=== PATIENT | female | born 1935 | race Caucasian/White ===

== ENCOUNTER 2017-08-29 12:23 | Observation (INO) | payer MEDICARE, OTHER ==
[2017-08-29] VITALS (14 sets, daily range): BP systolic 97–180; BP diastolic 46–107
[~2017-08-29] VITALS: Ht 144.8 cm; Wt 81.6 kg
--- NOTE | ~2017-08-29 | H ---
[address] [address] HISTORY AND PHYSICAL Name: GLENN EASON Room: [address] Ayad Montoya#: [id number] Admission: 08/29/17 Attend Phys: Leandro Chan MD Discharge: 08/30/17 Date of : 35 Report #: [id number] THIS REPORT FOR: //name// Please refer to the History and Physical performed in the physician's office. By: 1020Medical Records Staff NAS /KAREEM
[~2017-08-29 12:23] MED LIST: BP MED; CALCIUM 500 +1 EAC5 PO; CALCIUM PO; FISH OIL 1,001000 M2 PO; FISHOIL PO; FLOMAX0.4 MG PO; HYDROCODON-ACE1 EAC7 PO; HYDROCODONE-AP1 EAC6 PO; LIPITOR20 MG PO; NORCO 5-325 TA1 EACH PO; NORVASC 2.5 MG2.5 M1 PO; PERCOCET 5-3251 EACH PO; PLAVIX 75 MG TA75 MG PO; PROMETHAZINE12.5 M1 PO; PROZAC 10 MG CA10 MG PO; TUMS PO; VALIUM2 MG PO; VYTORIN 10-801 EACH PO
[2017-08-29 14:12] LABS: HEMOGLOBIN 11.8 gm/dL (12.0-15.0); MCH 27.9 pg (26.0-34.0); MCHC 32.9 g/dL (28.0-37.0); MCV 84.8 fL (80.0-100.0); MPV 9.9 fl. (7.2-11.1); RBC 4.24 mil/uL (4.20-5.00); RDW-CV 15.6 % (10.5-14.5); WBC 5.8 thou/uL (4.0-11.0)
[2017-08-29 14:22] LABS: ANION GAP 9 mmol/L (7-16); BUN 15 mg/dL (7-18); CALCIUM 8.8 mg/dL (8.5-10.1); CHLORIDE 105 mmol/L (98-107); CO2 29 mmol/L (21-32); CREATININE 0.8 mg/dL (0.6-1.3); GLUCOSE 76 mg/dL (70-99); POTASSIUM 3.8 mmol/L (3.5-5.1); SODIUM 143 mmol/L (136-145)
[2017-08-29 14:23] LABS: PROTIME 10.2 Seconds (9.20-11.50)
[2017-08-29 14:26] LABS: ALBUMIN 3.6 g/dL (3.4-5.0); ALKALINE PHOSPHATASE 112 U/L (46-116); CHOLESTEROL 249 mg/dL (<200); HDL CHOLESTEROL 57 mg/dL (>40); LDL CHOLESTEROL 167 mg/dL (<100); SGOT 31 U/L (15-37); SGPT 26 U/L (30-65); TC:HDL 4.4 Ratio (Not establshd); TOTAL BILIRUBIN 0.9 mg/dL (<0.1-1.0); TOTAL PROTEIN 7.2 g/dL (6.4-8.2); TRIGLYCERIDE 126 mg/dL (<150); VLDL 25 mg/dL (<40)
[2017-08-29 14:27] LABS: SERUM ASSESSMENT Clear
--- NOTE | 2017-08-29 18:38 | NUR ---
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 FROM [facility] RN- PT POST CATH WITH TROUBLE WITH MYNX CLOSURE TO RIGHT GROIN WITH MANUAL PRESSURE HELD- PT ARRIVED TO UNIT ROOM 201 AT 1820- ASSIST X2 VIA SLIDE TO BED-ESTIMATOR AND DRAFTER PLACED INDICATED, TRACING SR WITH BBB- PT A&O X4- CONTINENT OF BOWEL, CONTRERAS IN PLACE D/D CLEAR YELLOE URINE- VS INTAIATED PER PROTOCOL, REPORTED TO BE STARTED 30 MIN VS AT TIME OF ADMISSION- VS 98.2 18 138/57 61 92% ON RA- RIGHT GROIN SITE C/D/I, BRUSING NOTED DRESSING C/D/I- RADIAL CLOSURE NOTED TO RIGHT WRIST, 9 CC TOTAL REPORTED WITH 2 CC REMOVED AT THIS TIME- CALL LIGHT AND PERSONAL BELONGINGS WITH IN REACH- HOURLY ROUNDS IN PLACE R/T SAFETY/NEEDS- ALL NEEDS MET AT THIS TIME
--- NOTE | 2017-08-29 19:51 | TEE ---
[place] [address] TRANSESOPHAGEAL ECHOCARDIOGRAM Name: ANIVALALICIAGLENN [address]: [address]#: [id number] Admission: 08/29/17 Attend Phys: Leandro Chan, Discharge: Date of : 35 Date of Service: 08/29/171950 Report #: [id number] THIS REPORT FOR: //name// APPROVED REPORT Study performed: 08/29/2017 15:39:09 EXAM: Transesophageal Echocardiogram Patient Location: Out-Patient Status: routine BSA: 1.72 HR: 65 bpm BP: 130/37 mmHg Rhythm: NSR Other Information Study Quality: Good Indications Aortic Valve Disease Echo Enhancing Agent Indication: Rule out Shunt Agent(s) / Amount(s) Used: Agitated Saline 10 cc Procedure After obtaining informed consent, patient underwent transesophageal echo in the [facility]. Type of Sedation : Conscious Sedation Sedation was administered by Estrella Tracy. Sedation start time: 1550 Case end Time: 1605 Sedation was achieved intravenously with: Versed (3) Fentanyl (75) Transesophageal probe was inserted and advanced into esophagus without difficulty by Leandro Chan MD, FACC. Echo enhancement indication: R/O Septal defect. Echo enhancement agent administered: Agitated Saline The AYE was performed without complications. Throughout the procedure, the blood pressure, pulse oximetry, cardiac rhythm, and rate were monitored. The patient tolerated the procedure without adverse effects. Recovery from conscious sedation was uneventful and vital signs were stable. Left Ventricle [place] [id number] TRANSESOPHAGEAL ECHOCARDIOGRAM Name: GLENN EASON Room: [address] Ayad Montoya#: [id number] Admission: 08/29/17 Attend Phys: Leandro Chan, Discharge: Date of : 35 Date of Service: 08/29/171950 Report #: [id number] The left ventricle is normal size. There is normal LV segmental wall motion. There is normal left ventricular wall thickness. Left ventricular systolic function is normal. LVEF is 60-65%. Right Ventricle The right ventricle is normal size. The right ventricular systolic function is normal. Atria No thrombus is visualized in the left atrium or appendage. Left atrium is severely dilated. Interatrial septum is intact without evidence of ASD or PFO. The right atrium size is normal. Aortic Valve Severe aortic valve sclerosis. No aortic regurgitation is present. Severe aortic stenosis. Mitral Valve Moderate mitral annular calcification. Moderate to severe mitral regurgitation Flow reversal noted in pulmonary veins consistent with significant mitral regurgitation. No evidence of mitral valve stenosis. Tricuspid Valve The tricuspid valve is normal in structure. Trace to mild tricuspid regurgitation. Pulmonic Valve Pulmonic valve is not well visualized. There is no pulmonic valvular regurgitation. Great Vessels The aortic root is normal in size. Atherosclerotic plaque is present in the descending aorta. Pericardium There is no pericardial effusion. <Conclusion> The left ventricle is normal size. There is normal left ventricular wall thickness. Left ventricular systolic function is normal. LVEF is 60-65%. No thrombus is visualized in the left atrium or appendage. Left atrium is severely dilated. Severe [place] [address] TRANSESOPHAGEAL ECHOCARDIOGRAM Name: GLENN EASON Room: [address]#: [id number] Admission: 08/29/17 Attend Phys: Leandro Chan, Discharge: Date of : 35 Date of Service: 08/29/171950 Report #: [id number] Severe aortic stenosis. Moderate mitral annular calcification. Moderate to severe mitral regurgitation Flow reversal noted in pulmonary veins consistent with significant mitral regurgitation. Trace to mild tricuspid regurgitation. Atherosclerotic plaque is present in the descending aorta. <ELECTRONICALLY SIGNED> By: Leandro Chan MD, FACC 08/29/171950 50 50 Leandro Chan MD, FACC /INF
--- NOTE | 2017-08-29 20:21 | EKG ---
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: 27 : 1935 Requested By: Leandro Chan Order Number: [id number] Reading MD: Leandro Chan Measurements Intervals [place] Rate: 59 P: 45 SC: 159 QRS: 19 QRSD: 125 T: -9 QT: 504 QTc: 500 Interpretive Statements Sinus rhythm Right bundle branch block Borderline ST elevation, lateral leads Compared to ECG 04/16/2014 11:40:59 Right bundle-branch block now present ST (T wave) deviation now present Right-axis deviation no longer present Electronically Signed On 08-29-2017 20:21:32 [employer] by Leandro Chan [email or web address] <ELECTRONICALLY SIGNED> By: Leandro Chan MD, FACC 08/29/172020 1334 1334 Leandro Chan MD, [facility] /EPI
[2017-08-29] MEDS ORDERED: ZETIA10 MG PO (21:47)
--- NOTE | 2017-08-30 03:48 | NUR ---
ASSUMED PT CARE AT 1930, PT IS A&OX4, PT IS TRACING NSR ON THE MONITOR, PT DENIES ANY PAIN OR NEEDS AT THIS TMIE. PT IS ON RA SATTING MID TO LOW 90'S. PT IS POST CATH, INSERTION SITE OF RIGHT WRIST WELL RIGHT GROIN. BOTH SITES ARE CDI AT THIS TIME. THIS RN REMOVED VASCBAND PER PROTOCOL, GAUZE DRESSING PLACE TO WRIST WITH VERBAL EDUCATION ON LIMITED FUNCTION OF RIGHT ARM. ADMISSION COMPLETED CHARTED, DIANE TO DD, THIS RN COMPLETED POST CATH VITALS CHARTED. PT DENIES ANY NUMBNESS OR TINGLING. PT'S BEDREST WAS UP AT 2330, PT RESTING IN BED WITH HOME CPAP IN PLACE. HOURLY ROUNDING COMPLETED FOR PT SAFETY.
[2017-08-30 04:00] VITALS: BP 100/46
[2017-08-30 05:30] LABS: ABSOLUTE BASOPHILS 0.1 thou/uL (0.0-0.2); ABSOLUTE EOSINOPHILS 0.1 thou/uL (0.0-0.7); ABSOLUTE LYMPHOCYTES 1.5 thou/uL (0.8-5.3); ABSOLUTE MONOCYTES 0.5 thou/uL (0.0-1.2); BASOPHILS 0.9 %; EOSINOPHILS 1.9 %; HEMATOCRIT 29.7 % (37.0-47.0); HEMOGLOBIN 9.9 gm/dL (12.0-15.0); LYMPHOCYTES 24.6 %; MCHC 33.2 g/dL (28.0-37.0); MCV 84.4 fL (80.0-100.0); MONOCYTES 8.1 %; MPV 10.1 fl. (7.2-11.1); NUCLEATED RBCS 0 /100WBC; PLATELET COUNT* 137 thou/uL (150-400); POLYS 64.5 %; RBC 3.53 mil/uL (4.20-5.00); RDW-CV 15.7 % (10.5-14.5); WBC 6.2 thou/uL (4.0-11.0)
[2017-08-30 05:55] LABS: CREATININE 0.8 mg/dL (0.6-1.3)
[2017-08-30 08:00] VITALS: BP 121/62
[2017-08-30 09:43] VITALS: BP 100/46
[2017-08-30 11:57] VITALS: BP 100/46
--- NOTE | 2017-08-30 12:16 | D ---
[address] [address] DISCHARGE SUMMARY Name: GLENN EASON Room: [address] Ayad MAnalilia#: [id number] Admission: 08/29/17 Attend Phys: Leandro Chan MD Discharge: Date of : 35 Report #: [id number] THIS REPORT FOR: //name// CC: Elizabeth Chan DISCHARGE DIAGNOSES: 1. Three-vessel coronary artery disease. 2. Severe aortic stenosis. 3. Lwzyympr-lb-iwkgrn mitral insufficiency. 4. Hyperlipidemia. PROCEDURES DURING THE HOSPITALIZATION: 1. Transesophageal echocardiogram. 2. Coronary angiography. HOSPITAL COURSE: The patient was brought to the catheterization lab electively for further evaluation of severe aortic stenosis. A transesophageal echocardiogram verified severe aortic stenosis. Also noted was yervyavs-lt-omddhl mitral insufficiency. She has preserved left ventricular systolic function. There was no evidence of intracardiac thrombus. The patient then underwent coronary angiography and further evaluation for potential aortic valve replacement. She was found to have rather severe 3-vessel coronary artery disease as well. The patient had a small hematoma post-coronary angiography and was admitted to the hospital overnight for observation. The patient had no further problems. The hematoma resolved with compression. The patient is being discharged in stable condition. DISCHARGE MEDICATIONS: 1. Amlodipine 2.5 mg daily. 2. Aspirin 81 mg daily. 3. Atorvastatin 80 mg at bedtime. 4. Prozac 10 mg daily. 5. Tylenol p.r.n. 6. Hydrocodone, acetaminophen p.r.n. 7. Zetia 10 mg daily. DISPOSITION: The patient is to follow up with myself in 2 months. In the interim, we will arrange for cardiothoracic surgical evaluation. <ELECTRONICALLY SIGNED> By: Leandro Chan MD, FACC 08/30/17 1216 0949 1013Micsal Chan MD, FACC /nt
--- NOTE | 2017-08-30 12:59 | NUR ---
ASSUMED CARE OF PT THIS AM ASSESSED AND DOCUMENTED. PT ON CARDIAC MONITER TRACING SB BBB HR 56. PT IS A&O WITH NO C/O PAIN. VSS WNL. PT IS AFEBRILE. PT D/C'D TH HOME. CONTRERAS IV AND CARDIAC MONITER D/C'D. EDUCATION GIVEN RE: FOLLOW-UPS, MEDICATIONS, AND DR ORDERS. ALL BELONGOINGS PACKED UP AND LEFT WITH PT ACCOMPANIED BY DAUGHTER AND STAFF.
--- NOTE | 2017-08-30 13:36 | CARD ---
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 Coronary angiography was performed using coronary diagnostic catheters. The right coronary system was accessed and visualized with a Diagnostic 3DRC catheter. The left coronary system was accessed and visualized with a Diagnostic JL 4 catheter. Closure device was deployed with a Fr Mynx. The patient tolerated the procedure well and there were no complications associated with the procedure. Intraoperative Conscious Sedation Sedation start time: 16:36 Case end Time: 17:19 Versed 1 mg Fluoro Time: 9.9 minutes Dose: DAP [id number] cGycm2 1632 mGy Contrast Type and Amount: Omnipaque 190 ml Diagnostic Cath Left Main Normal LAD 10% narrowed proximally, 70% narrowed in its midportion and 20% narrowing distally Diagonal 1 Normal Diagonal 2 80% ostial stenosis Circumflex Normal OM1 90% ostial stenosis OM2 Normal OM3 Normal Right Coronary 90% ostial stenosis. Diffusely diseased throughout. [address] [address] CARDIAC CATH REPORT Name: GLENN EASON Room: [address] Ayad Montoya#: [id number] Admission: 08/29/17 Attend Phys: Leandro Chan MD Discharge: 08/30/17 Date of : 35 Report #: [id number] 50% proximal stenosis. 30% diffuse narrowing in its mid and distal portion. 70% stenosis prior to the bifurcation of the PDA and PLV. R PDA 70% ostial stenosis RPLV 70% mid vessel stenosis Left Ventriculography Left Ventriculography was not performed. Hemodynamics The aortic pressure is 117/55 mmHg with a mean of 82 mmHg. Conclusion 1. Significant three-vessel coronary artery disease. 2. LV gram not obtained due to severe aortic stenosis. Recommendations 1. Recommend CTS evaluation. <ELECTRONICALLY SIGNED> By: Leandro Chan MD, [facility] 08/30/17 1335 1335 1335Micsal Chan MD, FACC /INF
== END 2017-08-30 13:00 | disposition home or self-care (01) ==
LOC: M.CL 12:23 → M.TBA-ER 17:37 → M.2W 18:24
PROVIDERS: ADMIT Internal Medicine Cardiovascular Disease
DX: I25.10 Atherosclerotic heart disease of native coronary artery without angina pectoris (principal); I35.0 Nonrheumatic aortic (valve) stenosis; I63.9 Cerebral infarction, unspecified; I34.0 Nonrheumatic mitral (valve) insufficiency; E78.5 Hyperlipidemia, unspecified; E78.00 Pure hypercholesterolemia, unspecified; I10 Essential (primary) hypertension; Z86.73 Personal history of transient ischemic attack (TIA), and cerebral infarction without residual deficits

== ENCOUNTER 2017-10-14 21:11 | Inpatient (IN) | payer MEDICARE, OTHER ==
[~2017-10-14] VITALS: Ht 152.4 cm; Wt 98.0 kg
[~2017-10-14 21:11] MED LIST changes: +ZETIA10 MG PO
[2017-10-14 21:12] VITALS: BP 166/83
[2017-10-14 21:48] LABS: ABSOLUTE BASOPHILS 0.2 thou/uL (0.0-0.2); ABSOLUTE EOSINOPHILS 0.2 thou/uL (0.0-0.7); ABSOLUTE LYMPHOCYTES 8.7 thou/uL (0.8-5.3); ABSOLUTE MONOCYTES 1.2 thou/uL (0.0-1.2); ABSOLUTE NEUTROPHILS 7.7 thou/uL (1.6-8.1); BASOPHILS 1.3 %; EOSINOPHILS 1.1 %; HEMATOCRIT 34.4 % (37.0-47.0); LYMPHOCYTES 48.1 %; MCHC 31.9 g/dL (28.0-37.0); MCV 87.8 fL (80.0-100.0); MONOCYTES 6.5 %; MPV 9.9 fl. (7.2-11.1); NUCLEATED RBCS 0 /100WBC; PLATELET COUNT* 177 thou/uL (150-400); RBC 3.92 mil/uL (4.20-5.00); RDW-CV 16.8 % (10.5-14.5)
[2017-10-14 21:59] LABS: BE -7.4 mmol/L (-2 to +3); HCO3 28.6 mmol/L (22.0-26.0); PO2 84.5 mmHg (75.0-100.0)
[2017-10-14 22:01] LABS: PCO2 149.2 mmHg (35.0-45.0)
[2017-10-14 22:06] LABS: CALCIUM 7.8 mg/dL (8.5-10.1); CREATININE 1.4 mg/dL (0.6-1.3); POTASSIUM 4.1 mmol/L (3.5-5.1)
[2017-10-14 22:10] LABS: APTT 28.5 Seconds (25.0-31.3); INR 1.1; PROTIME 10.7 Seconds (9.20-11.50)
[2017-10-14 22:13] LABS: ALBUMIN 3.1 g/dL (3.4-5.0); TOTAL BILIRUBIN 0.5 mg/dL (<0.1-1.0); TOTAL PROTEIN 6.4 g/dL (6.4-8.2); TROPONIN-I LEVEL 0.52 ng/mL (<0.06)
[2017-10-14 23:00] VITALS: BP 117/46
[2017-10-15] VITALS (45 sets, daily range): BP systolic 74–154; BP diastolic 28–121
[2017-10-15 02:10] LABS: HEMATOCRIT 32.2 % (37.0-47.0); HEMOGLOBIN 10.2 gm/dL (12.0-15.0); MCH 27.6 pg (26.0-34.0); MCHC 31.5 g/dL (28.0-37.0); MCV 87.6 fL (80.0-100.0); NUCLEATED RBCS 0 /100WBC; PLATELET COUNT* 188 thou/uL (150-400); RBC 3.68 mil/uL (4.20-5.00); RDW-CV 17.1 % (10.5-14.5); WBC 20.1 thou/uL (4.0-11.0)
[2017-10-15 02:13] LABS: HEMATOCRIT 32.3 % (37.0-47.0); HEMOGLOBIN 10.1 gm/dL (12.0-15.0); MCH 27.7 pg (26.0-34.0); MCHC 31.4 g/dL (28.0-37.0); MCV 88.1 fL (80.0-100.0); MPV 10.1 fl. (7.2-11.1); RBC 3.66 mil/uL (4.20-5.00); RDW-CV 16.9 % (10.5-14.5)
[2017-10-15 02:17] LABS: ALBUMIN 2.9 g/dL (3.4-5.0); CALCIUM 7.8 mg/dL (8.5-10.1); CREATININE 1.9 mg/dL (0.6-1.3); POTASSIUM 3.8 mmol/L (3.5-5.1); TOTAL BILIRUBIN 0.5 mg/dL (<0.1-1.0); TOTAL PROTEIN 5.9 g/dL (6.4-8.2)
[2017-10-15 03:38] LABS: ABSOLUTE LYMPHOCYTES 2.8 thou/uL (0.8-5.3); ABSOLUTE MONOCYTES 1.4 thou/uL (0.0-1.2); ABSOLUTE NEUTROPHILS 15.9 thou/uL (1.6-8.1); ANISOCYTOSIS 1+; PLATELET ESTIMATE ADEQUATE
[2017-10-15 04:44] LABS: PCO2 43.5 mmHg (35.0-45.0)
[2017-10-15 04:45] LABS: BE -8.9 mmol/L (-2 to +3); HCO3 18.1 mmol/L (22.0-26.0); PO2 144.4 mmHg (75.0-100.0)
[2017-10-15 05:46] LABS: MAGNESIUM 1.9 mg/dL (1.8-2.4); PHOSPHORUS* 4.9 mg/dL (2.5-4.9)
[2017-10-15 06:18] LABS: FIBRINOGEN ND mg/dL (200-340)
[2017-10-15 08:16] LABS: ABSOLUTE LYMPHOCYTES 1.1 thou/uL (0.8-5.3); ABSOLUTE MONOCYTES 0.7 thou/uL (0.0-1.2); ABSOLUTE NEUTROPHILS 13.9 thou/uL (1.6-8.1); BASOPHILS 0.2 %; HEMATOCRIT 29.8 % (37.0-47.0); HEMOGLOBIN 9.7 gm/dL (12.0-15.0); LYMPHOCYTES 6.7 %; MCH 27.9 pg (26.0-34.0); MCHC 32.5 g/dL (28.0-37.0); MCV 85.8 fL (80.0-100.0); MONOCYTES 4.3 %; MPV 10.2 fl. (7.2-11.1); NUCLEATED RBCS 0 /100WBC; PLATELET COUNT* 130 thou/uL (150-400); POLYS 88.8 %; RBC 3.47 mil/uL (4.20-5.00); RDW-CV 16.4 % (10.5-14.5); WBC 15.7 thou/uL (4.0-11.0)
[2017-10-15 08:34] LABS: CALCIUM 7.8 mg/dL (8.5-10.1); CK-MB MASS 203.3 ng/mL (<0.5-3.6); CREATININE 1.8 mg/dL (0.6-1.3); MAGNESIUM 1.8 mg/dL (1.8-2.4); PHOSPHORUS* 4.9 mg/dL (2.5-4.9); POTASSIUM 3.3 mmol/L (3.5-5.1)
[2017-10-15 08:43] LABS: TROPONIN-I LEVEL 21.14 ng/mL (<0.06)
[2017-10-15 08:45] LABS: APTT 28.9 Seconds (25.0-31.3); FIBRINOGEN 162 mg/dL (200-340); INR 1.2; PROTIME 11.9 Seconds (9.20-11.50)
[2017-10-15 09:49] LABS: BE -5.1 mmol/L (-2 to +3); HCO3 22.4 mmol/L (22.0-26.0); PO2 88.4 mmHg (75.0-100.0)
[2017-10-15 09:52] LABS: PCO2 52.9 mmHg (35.0-45.0); pH 7.244 (7.340-7.450)
--- NOTE | 2017-10-15 10:12 | EKG ---
[place] [address] ELECTROCARDIOGRAM REPORT Name: GLENN EASON Room: [address] ADM IN .R.#: [id number] Admission: 10/15/17 Attend Phys: Gilma Wolfe MD Discharge: Date of : 35 Report #: [id number] THIS REPORT FOR: //name// [facility] ED Test Date: 2017-10-14 Test Time: 21:15:41 Pat Name: GLENN EASON Department: Room: [facility] Gender: F Rn Enterostomal: KASHMIR : 1935 Requested By: Latonia Blackburn Order Number: [id number] MD: Velasquez Bettencourt Measurements Intervals [place] Rate: 115 P: 29 [place]: 94 QRS: -154 QRSD: 119 T: 4 QT: 381 QTc: 527 Interpretive Statements Sinus tachycardia right superior axis Right bundle branch block Compared to ECG 08/29/2017 13:34:56 Sinus rhythm no longer present Electronically Signed On 10-15-2017 10:12:43 CDT by Velasquez Bettencourt [email or web address] <ELECTRONICALLY SIGNED> By: Velasquez Bettencourt MD, [facility] 10/15/17 1012 Velasquez Bettencourt MD, [facility] /EPI
[2017-10-15 13:57] LABS: CK-MB MASS 186.4 ng/mL (<0.5-3.6)
[2017-10-15 13:58] LABS: TROPONIN-I LEVEL 22.84 ng/mL (<0.06)
--- NOTE | 2017-10-15 14:35 | 2DMMODE ---
[place] [address] 2 D/M-MODE ECHOCARDIOGRAM Name: GLENN EASON Room: [address] IN [facility]#: [id number] Admission: 10/15/17 Attend Phys: Gilma Wolfe, Discharge: Date of : 35 Date of Service: 10/15/17 1435 Report #: [id number] THIS REPORT FOR: //name// APPROVED REPORT Study performed: 10/15/2017 10:29:31 EXAM: Comprehensive 2D, Doppler, and color-flow Echocardiogram Patient Location: In-Patient Room #: 006 Status: routine BSA: 1.95 HR: 67 bpm BP: 132/40 mmHg Rhythm: NSR Other Information Study Quality: Good Indications Cardiac arrest 2D Dimensions LVEF(%): 63.43 (>50%) IVSd: 15.13 (7-11mm) LVOT Diam: 18.35 (18-24mm) LVDd: 42.17 mm PWd: 12.24 (7-11mm) Ascending Ao: 25.00 (22-36mm) LVDs: 27.79 (25-40mm) Aortic Root: 29.07 mm Soria's LVEF: 63.43 % Volumes Left Atrial Volume (Systole) LA ESV Index: 56.00 mL/m2 Aortic Valve AoV Peak Alban.: 3.98 m/s AO Peak Gr.: 63.24 mmHg LVOT Max P.44 mmHg AO Mean Gr.: 33.30 mmHg LVOT Mean P.82 mmHg LVOT Max V: 1.05 m/s AO V2 VTI: 74.31 cm LVOT Mean V: 0.61 m/s ALFRED (VTI): 0.83 cm2 LVOT V1 VTI: 23.43 cm Mitral Valve E/A Ratio: 1.02 [place] [address] 2 D/M-MODE ECHOCARDIOGRAM Name: GLENN EASON Room: [address] IN .R.#: [id number] Admission: 10/15/17 Attend Phys: Gilma Wolfe, Discharge: Date of : 35 Date of Service: 10/15/17 1435 Report #: [id number] MV Decel. Time: 277.34 ms MV E Max Alban.: 0.99 m/s MV PHT: 80.43 ms MVA (PHT): 2.74 cm2 TDI E/Lateral E': 12.38 E/Medial E': 16.50 Medial E' Alban.: 0.06 m/s Lateral E' Alban.: 0.08 m/s Pulmonary Valve PV Peak Alban.: 1.01 m/s PV Peak Gr.: 4.12 mmHg Tricuspid Valve TR Peak Gr.: 26.38 mmHg RVSP: 31.00 mmHg Left Ventricle The left ventricle is normal size. There is normal LV segmental wall motion. Moderate concentric left ventricular hypertrophy. Left ventricular systolic function is normal. The left ventricular ejection fraction is within the normal range. LVEF is 65-70%. This study is not technically sufficient to allow evaluation of the LV diastolic function. Right Ventricle The right ventricle is normal size. The right ventricular systolic function is normal. Atria Left atrium is severely dilated. The right atrium size is normal. Aortic Valve Severe aortic valve calcification No aortic regurgitation is present. Severe aortic stenosis. Mitral Valve There is mitral annular calcification. Moderate mitral regurgitation.. No evidence of mitral valve stenosis. Tricuspid Valve The tricuspid valve is normal in structure. Mild tricuspid regurgitation. The RVSP is 30-35 mmHg. Pulmonic Valve Pulmonic valve is not well visualized. There is no pul[place] [address] 2 D/M-MODE ECHOCARDIOGRAM Name: YUMIGLENN Felipe Room: [address] IN [facility]#: [id number] Admission: 10/15/17 Attend Phys: Gilma Wolfe, Discharge: Date of : 35 Date of Service: 10/15/17 1435 Report #: [id number] regurgitation. Great Vessels The aortic root is normal in size. IVC is normal in size and collapses with >50% inspiration Pericardium There is no pericardial effusion. <Conclusion> Moderate concentric left ventricular hypertrophy. LVEF is 65-70%. Severe aortic stenosis. Moderate mitral regurgitation.. Mild tricuspid regurgitation. The RVSP is 30-35 mmHg. <ELECTRONICALLY SIGNED> By: Velasquez Bettencourt MD, FACC 10/15/17 1435 1435 1435 Velasquez Bettencourt MD, FACC /INF
[2017-10-16] VITALS (21 sets, daily range): BP systolic 113–164; BP diastolic 42–65
[2017-10-16 03:51] LABS: HEMATOCRIT 22.7 % (37.0-47.0); MCH 28.3 pg (26.0-34.0); MCHC 33.1 g/dL (28.0-37.0); MCV 85.5 fL (80.0-100.0); RBC 2.66 mil/uL (4.20-5.00); RDW-CV 16.7 % (10.5-14.5); WBC 10.8 thou/uL (4.0-11.0)
[2017-10-16 03:53] LABS: HEMOGLOBIN 7.5 gm/dL (12.0-15.0)
[2017-10-16 04:19] LABS: ALBUMIN 2.4 g/dL (3.4-5.0); CALCIUM 7.4 mg/dL (8.5-10.1); CREATININE 1.9 mg/dL (0.6-1.3); POTASSIUM 5.9 mmol/L (3.5-5.1); TOTAL BILIRUBIN 0.8 mg/dL (<0.1-1.0); TOTAL PROTEIN 5.5 g/dL (6.4-8.2)
[2017-10-16 08:08] LABS: BE -4.7 mmol/L (-2 to +3); HCO3 21.6 mmol/L (22.0-26.0); PCO2 45.4 mmHg (35.0-45.0)
[2017-10-16 08:20] LABS: PO2 148.1 mmHg (75.0-100.0); pH 7.295 (7.340-7.450)
[2017-10-16 08:39] LABS: ABSOLUTE LYMPHOCYTES 0.8 thou/uL (0.8-5.3); ABSOLUTE MONOCYTES 0.5 thou/uL (0.0-1.2); ABSOLUTE NEUTROPHILS 9.2 thou/uL (1.6-8.1); BASOPHILS 0.2 %; EOSINOPHILS 0.1 %; HEMATOCRIT 23.2 % (37.0-47.0); HEMOGLOBIN 7.7 gm/dL (12.0-15.0); LYMPHOCYTES 7.6 %; MCH 28.3 pg (26.0-34.0); MCHC 33.4 g/dL (28.0-37.0); MCV 84.7 fL (80.0-100.0); MONOCYTES 4.9 %; MPV 10.1 fl. (7.2-11.1); NUCLEATED RBCS 0 /100WBC; PLATELET COUNT* 85 thou/uL (150-400); POLYS 87.2 %; RBC 2.74 mil/uL (4.20-5.00); RDW-CV 16.8 % (10.5-14.5); WBC 10.5 thou/uL (4.0-11.0)
[2017-10-16 08:48] LABS: CALCIUM 7.6 mg/dL (8.5-10.1)
[2017-10-16 08:50] LABS: POTASSIUM 6.1 mmol/L (3.5-5.1)
--- NOTE | 2017-10-16 11:06 | CON ---
[address] [address] CONSULTATION Name: GLENN EASON Room: [address] IN M.R.#: [id number] Admission: 10/15/17 Attend Phys: Gilma Wolfe MD Discharge: Date of : 35 Report #: [id number] THIS REPORT FOR: //name// CC: Gilma Jordan REASON FOR CONSULTATION: Acute respiratory failure, status post cardiac arrest. HISTORY OF PRESENT ILLNESS: The patient was intubated on the vent, on sedation during the time of my evaluation. Discussed with the RN, reviewed records and discussed with the daughter at the bedside. This is an 82-year-old female patient, resident of a nursing facility. Apparently, she was scheduled to have coronary artery disease surgery sometime this month at . She presented to the ER with cardiac arrest. She was outside at her alf home when she developed shortness of breath and then she collapsed and became unresponsive. The EMS shocked her once and gave her one round of epinephrine. She had CPR with chest compression for around 6 minutes. Upon arrival to the ER, she was unresponsive. She was intubated. Apparently per the record, she was difficult intubation, required multiple attempts and anesthesia was involved to get her intubated. She also was found to have some left-sided pneumothorax, where she had a chest tube placed. During this whole process, it was noted that one of her teeth is missing and it is not clear where the tooth ended up. When I saw her today, she was on sedation. She was on 4 mcg of Levophed. She is on amiodarone. She is on a small dose of Versed and fentanyl. She has a chest tube in the left side and she is on 70% FIO2 and assist-control ventilation. PAST MEDICAL HISTORY: Coronary artery disease, stroke, hypertension, depression, history of aortic valve stenosis, history of arthritis and history of hyperlipidemia. MEDICATIONS: Lipitor, Zetia, Norvasc, Prozac and calcium supplement. ALLERGIES: MOXIFLOXACIN. SOCIAL HISTORY: Daughter at the bedside reported that she never smoked. Does not drink alcohol. Does not abuse drugs. She does not carry a diagnosis of lung disease, although she has obstructive sleep apnea and had been compliant with her CPAP machine. REVIEW OF SYSTEMS: At this point, not obtainable due to the patient's condition. She is on the vent. PHYSICAL EXAMINATION: VITAL SIGNS: On examination, she is on 4 mcg of Levophed. Her blood pressure is 100/56, breathing 20 times a minute on the vent. [place] [address] CONSULTATION Name: GLENN EASON Room: [address] IN ..#: [id number] Admission: 10/15/17 Attend Phys: Gilma Wolfe MD Discharge: Date of : 35 Report #: [id number] code protocol. She is hypothermic. GENERAL: She is intubated and sedated. HEENT: Pupils sluggish reaction to light. ET tube in place. External ears look healthy and normal. Oral cavity, moist mucous membranes with ET tube in place. NECK: Supple. She has a central line in place. CHEST: Air movement heard bilaterally, some crackles heard on the left side. She has a chest tube on the left side. ABDOMEN: Soft, lax and nontender; sluggish bowel sounds. EXTREMITIES: Lower extremity, trace edema. No calf tenderness. SKIN: Normal for age and race. Also, it was noted that she has subcutaneous emphysema on the left side of her neck and left side of her chest. PSYCHIATRIC: Mood and affect could not be evaluated. NEUROLOGIC: She is sedated. She is in code ice protocol. LABORATORY DATA: Her ABGs initially 6.9/149/84. Repeat ABGs at 04:00 a.m. 7.23/43/144 and this was done on assist-control ventilation at 100% of FiO2. White blood count of 15.7, hemoglobin 9.7 and platelets of 130,000. Creatinine of 1.8, chloride of 108 and potassium of 3.3. INR of 1.2. She had multiple chest x-rays which I reviewed, initially showed left-sided pneumothorax. The last chest x-ray this morning showed resolution of the pneumothorax. There was infiltrate on the left side, subcutaneous emphysema and chest tube in good position. IMPRESSION: 1. Acute respiratory failure. 2. Status post cardiac arrest. 3. Left-sided pneumothorax. 4. Coronary artery disease. 5. Aortic valve disease. 6. Obstructive sleep apnea, on CPAP at home. 7. Possible anoxic brain injury. PLAN: The patient is still requiring significant amount of oxygen. She still has metabolic acidosis. We will do followup ABGs. We will work on weaning the oxygen down as tolerated. She is still on the ice cold protocol. She is still requiring vasopressors. I agree with the current plan of sedation to keep her comfortable. We will follow with chest x-rays and ABGs. Chest tube most likely will stay until after extubation. She will need neurological evaluation given her cardiac arrest, Cardiology following along for further evaluation. With a report of missing tooth during her intubation, it is not clear if the tooth went into the GI tract or the airways. Once she is more stable for transfer, we can do a CT scan of her chest and we can consider bronchoscopy. [address] [address] CONSULTATION Name: GLENN EASON Room: [address] IN ..#: [id number] Admission: 10/15/17 Attend Phys: Gilma Wolfe MD Discharge: Date of : 35 Report #: [id number] However, the amount of oxygen she is on, she is not stable for bronchoscopy at this point. Discussed with the daughter and the RN. CONDITION: Guarded. PROGNOSIS: Guarded. Critical care time 35 minutes. <ELECTRONICALLY SIGNED> By: Eran Belcher MD 10/16/17 1106 0926 [id number] Chávez MD /nt
--- NOTE | 2017-10-16 15:28 | CON ---
[address] [address] CONSULTATION Name: GLENN EASON Room: [address] IN .R.#: [id number] Admission: 10/15/17 Attend Phys: Gilma Wolfe MD Discharge: Date of : 35 Report #: [id number] THIS REPORT FOR: //name// CC: Gilma [facility] DATE OF SERVICE: 10/15/2017 REQUESTING PHYSICIAN: Dr. Wolfe. REASON FOR CONSULTATION: Acute kidney injury. HISTORY OF PRESENT ILLNESS: The patient is an 82-year-old white female with medical history significant for severe coronary artery disease, valvular heart disease and apparently she was scheduled to have open heart surgery in the near future. She was admitted today on 10/15/2017 after she sustained cardiac arrest. She was admitted to Intensive Care Unit. She was resuscitated. She is on vent now and I was consulted because her creatinine is higher than her baseline ____ she has normal creatinine. This morning, she is receiving some fluids and her urine output is actually improving. PAST MEDICAL HISTORY: 1. Severe coronary artery disease. 2. History of aortic stenosis. 3. History of renal stones. 4. History of UTIs. 5. Degenerative joint disease. FAMILY HISTORY: Noncontributory. SOCIAL HISTORY: She is a [facility] patient. No tobacco or alcohol abuse. MEDICATIONS: Prior to admission reviewed and she was on Zetia, Lipitor, amlodipine, Prozac and calcium carbonate with vitamin D. REVIEW OF SYSTEMS: Obviously impossible to obtain due to a history of cardiac arrest and now being intubated and unresponsive. PHYSICAL EXAMINATION: GENERAL: The patient is in intensive care unit. She is on the vent. NECK: Fatty. LUNGS: Decreased air movement, but no crackles. CARDIOVASCULAR: Reveals regular rate. Pericardial rub is not present. ABDOMEN: [place] [address] CONSULTATION Name: GLENN EASON Felipe Room: [address]#: [id number] Admission: 10/15/17 Attend Phys: Gilma Wolfe MD Discharge: Date of : 35 Report #: [id number] EXTREMITIES: Lower extremities without edema. A chest x-ray revealed no acute radiographic abnormality in the chest. Chest x-ray was done yesterday, but the chest x-ray from today showed that ET tube was a little too far and was withdrawn and there was a left apical pneumothorax and hazy infiltrate in both lungs. Labs revealed BUN 32, creatinine 1.8. ASSESSMENT: 1. An 82-year-old female with acute kidney injury due to under perfusion of the kidneys due to episodes of cardiac arrest. 2. Coronary artery disease, status post cardiac arrest. 3. Morbid obese. 4. History of hypertension. 5. History of aortic stenosis. PLAN: To keep her euvolemic, I think would like to decrease her fluids to 80 mL an hour if okay with the primary. She had some congestion on x-ray and follow her labs carefully. Discussed with ICU nurse. Thank you very much for asking my opinion on the patient, acute kidney injury. <ELECTRONICALLY SIGNED> By: Joseph Perez MD 10/16/17 1528 1105 [id number] Perez MD /nt
--- NOTE | 2017-10-16 18:16 | CON ---
[address] [address] CONSULTATION Name: GLENN EASON Room: [address] IN .R.#: [id number] Admission: 10/15/17 Attend Phys: Gilma Wolfe MD Discharge: Date of : 35 Report #: [id number] THIS REPORT FOR: //name// CC: Romulo Jordan DO INDICATION: Out of hospital arrest. HISTORY OF PRESENT ILLNESS: The patient is an 82-year-old white female with severe aortic stenosis and 3-vessel coronary artery disease who was at her fpc, walking her dog when she complained of acute onset shortness of breath followed by syncope. The patient was seen immediately by EMS and found to be in ventricular fibrillation. She has received shock and a single bolus of epinephrine. The patient was placed on automated CPR and transferred to [facility] for further treatment. She was intubated in the emergency room. The patient had rib fractures from CPR and a left-sided tension pneumothorax requiring chest tube placement. Presently, the patient is on cooling protocol in the ICU. Vital signs are stable on a very low dose of Levophed. Initial troponin is 23. Echocardiogram is pending. Previous transthoracic echocardiogram in April 2017, showed normal left ventricular systolic function, left ventricular hypertrophy that was mild, grade 3 diastolic dysfunction, severe left atrial enlargement, severe aortic stenosis with a valve area of 0.86 cm2, mild mitral insufficiency. A transesophageal echocardiogram in August 2017, showed normal left ventricular systolic function, left ventricular hypertrophy, no evidence of thrombus, severe left atrial enlargement, severe aortic stenosis, uhdhjdtf-wo-igwuwr mitral insufficiency with flow reversal noted in the pulmonary veins. Catheterization in August 2017, showed 3-vessel disease with 70% mid LAD, 80% ostial second diagonal, 90% ostial first obtuse marginal, 90% ostial right and 70% distal right/ostial PDA, PLV stenoses. PAST MEDICAL HISTORY: Significant for: 1. Three-vessel coronary artery disease as outlined above. 2. Severe aortic stenosis. 3. Ootivaoz-vs-fkrlrf mitral insufficiency. 4. Essential hypertension. 5. Hyperlipidemia. 6. Remote history of CVA. 7. Osteoarthritis. PAST SURGICAL HISTORY: Cataract surgery. FAMILY HISTORY: [place] [address] CONSULTATION Name: GLENN EASON Room: [address]#: [id number] Admission: 10/15/17 Attend Phys: Gilma Wolfe MD Discharge: Date of : 35 Report #: [id number] SOCIAL HISTORY: The patient is a lifelong nonsmoker. The patient lives in [place], [place] in [facility]. The patient's daughter is present with her. REVIEW OF SYSTEMS: Not obtainable. PHYSICAL EXAMINATION: VITAL SIGNS: Presently, blood pressure 143/106, pulse is 102 and regular. GENERAL: This is an obese white female who is intubated and sedated. HEENT: Head is normocephalic, atraumatic. NECK: Shows no jugular venous distention. CHEST: Reveals clear lung lopez. I do not appreciate wheezes or rales. CARDIAC: Reveals a tachycardic rhythm that is regular with a grade 2/6 systolic ejection murmur. ABDOMEN: Reveals normal bowel sounds. The abdomen is soft and nontender. EXTREMITIES: Shows trace edema. Extremities are cool to touch. The patient is on cooling protocol. A 12-lead EKG shows sinus tachycardia with right bundle branch block. I do not have strips from cardiac arrest. LABS: Reviewed. Sodium 144, potassium 3.3, chloride 108, bicarb 25, BUN 32, creatinine 1.8, serum glucose 287, AST 155, alk phos 115, ALT 85. Troponin on arrival 0.52, presently 21.14. NT-proBNP 5949. White blood cell count 15.7, hemoglobin 9.7, and platelet count 130,000. Chest x-ray shows resolution of left pneumothorax with a left-sided chest tube in place. Subcutaneous emphysema noted in the left chest and neck area. Pulmonary vascular congestion noted. IMPRESSION AND RECOMMENDATIONS: 1. Out of hospital arrest, ventricular fibrillation, status post resuscitation. The patient has been placed on amiodarone drip after an amiodarone bolus. She has had no further dysrhythmia at this time. She is now intubated and on cooling protocol in the intensive care unit. She is requiring minimal pressors for support, which will be likely weaned without difficulty. 2. Coronary artery disease as outlined above. She does have a bump in troponin from her arrest. This could be due to strain. An echocardiogram will be repeated at this time for evaluation of left ventricular systolic function. 3. Severe aortic stenosis. Plans were for aortic valve replacement, 3-vessel bypass and possible mitral valve repair in the near future. Cardiothoracic surgery updated on the patient's current clinical condition. We will continue supportive care at this time. 4. Hyperlipidemia. The patient had been on a statin agent prior to arrest, we will resume if she recovers and begins taking oral medications. 5. Hypertension, presently not a problem. We will support with IV medications as needed through this process. [address] [place] [address] CONSULTATION Name: GLENN EASON Room: [address] IN [facility]#: [id number] Admission: 10/15/17 Attend Phys: Gilma Wolfe MD Discharge: Date of : 35 Report #: [id number] 6. Tension pneumothorax, status post chest tube placement, the patient is being followed by pulmonology. Pneumothorax resolved. 7. Rib fractures secondary to cardiopulmonary resuscitation. We will continue supportive treatment. <ELECTRONICALLY SIGNED> By: Leandro Chan MD, FACC 10/16/17 1816 0903 [id number] Chan MD, FACC /nt
[2017-10-17] VITALS (20 sets, daily range): BP systolic 11–125; BP diastolic 33–70
[2017-10-17 03:37] LABS: BE -6.7 mmol/L (-2 to +3); HCO3 19.1 mmol/L (22.0-26.0); PCO2 39.5 mmHg (35.0-45.0); PO2 63.2 mmHg (75.0-100.0); pH 7.303 (7.340-7.450)
[2017-10-17 05:20] LABS: ABSOLUTE LYMPHOCYTES 0.9 thou/uL (0.8-5.3); ABSOLUTE MONOCYTES 0.7 thou/uL (0.0-1.2); ABSOLUTE NEUTROPHILS 11.4 thou/uL (1.6-8.1); BASOPHILS 0.3 %; HEMATOCRIT 22.6 % (37.0-47.0); HEMOGLOBIN 7.2 gm/dL (12.0-15.0); LYMPHOCYTES 7.1 %; MCH 27.6 pg (26.0-34.0); MCHC 31.7 g/dL (28.0-37.0); MONOCYTES 5.3 %; MPV 10.9 fl. (7.2-11.1); NUCLEATED RBCS 0 /100WBC; PLATELET COUNT* 113 thou/uL (150-400); POLYS 87.3 %; RDW-CV 16.9 % (10.5-14.5)
[2017-10-17 05:43] LABS: ALBUMIN 2.3 g/dL (3.4-5.0); CALCIUM 7.5 mg/dL (8.5-10.1); CREATININE 2.9 mg/dL (0.6-1.3); TOTAL PROTEIN 5.9 g/dL (6.4-8.2)
[2017-10-17 06:00] LABS: POTASSIUM 5.1 mmol/L (3.5-5.1)
[2017-10-17 06:02] LABS: PREALBUMIN 16.1 mg/dL (18.0-35.7)
[2017-10-17 08:18] LABS: BE -7.6 mmol/L (-2 to +3); HCO3 19.9 mmol/L (22.0-26.0); PO2 105.5 mmHg (75.0-100.0)
[2017-10-17 08:20] LABS: PCO2 50.6 mmHg (35.0-45.0); pH 7.212 (7.340-7.450)
[2017-10-17 14:43] LABS: HEMATOCRIT 27.9 % (37.0-47.0); HEMOGLOBIN 8.8 gm/dL (12.0-15.0)
[2017-10-18] VITALS (15 sets, daily range): BP systolic 95–132; BP diastolic 45–71
[2017-10-18 05:28] LABS: HEMATOCRIT 24.9 % (37.0-47.0); HEMOGLOBIN 8.2 gm/dL (12.0-15.0); MCH 28.1 pg (26.0-34.0); MCHC 32.7 g/dL (28.0-37.0); MCV 85.7 fL (80.0-100.0); MPV 9.8 fl. (7.2-11.1); RBC 2.91 mil/uL (4.20-5.00); RDW-CV 17.3 % (10.5-14.5); WBC 9.7 thou/uL (4.0-11.0)
[2017-10-18 05:50] LABS: CALCIUM 7.2 mg/dL (8.5-10.1)
[2017-10-18 06:32] LABS: CREATININE 4.2 mg/dL (0.6-1.3)
[2017-10-18 06:33] LABS: POTASSIUM 4.9 mmol/L (3.5-5.1)
[2017-10-18 09:10] LABS: BE -11.3 mmol/L (-2 to +3); HCO3 13.7 mmol/L (22.0-26.0); PCO2 29.2 mmHg (35.0-45.0); PO2 79.5 mmHg (75.0-100.0)
[2017-10-18 09:11] LABS: pH 7.289 (7.340-7.450)
[2017-10-19] VITALS (14 sets, daily range): BP systolic 105–154; BP diastolic 26–72
[2017-10-19 04:29] LABS: BE -11.7 mmol/L (-2 to +3); HCO3 12.4 mmol/L (22.0-26.0); PCO2 22.8 mmHg (35.0-45.0); PO2 87.3 mmHg (75.0-100.0); pH 7.354 (7.340-7.450)
[2017-10-19 05:28] LABS: MCH 27.8 pg (26.0-34.0); MCV 85.4 fL (80.0-100.0); WBC 11.7 thou/uL (4.0-11.0)
[2017-10-19 05:29] LABS: HEMATOCRIT 22.9 % (37.0-47.0); HEMOGLOBIN 7.4 gm/dL (12.0-15.0); MCHC 32.5 g/dL (28.0-37.0); MPV 10.7 fl. (7.2-11.1); RBC 2.68 mil/uL (4.20-5.00); RDW-CV 17.3 % (10.5-14.5)
[2017-10-19 06:24] LABS: CALCIUM 7.4 mg/dL (8.5-10.1); CREATININE 5.5 mg/dL (0.6-1.3); POTASSIUM 5.3 mmol/L (3.5-5.1)
--- NOTE | 2017-10-19 13:00 | EKG ---
[place] [address] ELECTROCARDIOGRAM REPORT Name: GLENN EASON Room: [address] ADM IN M.R.#: [id number] Admission: 10/15/17 Attend Phys: Gilma Wolfe MD Discharge: Date of : 35 Report #: [id number] THIS REPORT FOR: //name// [facility] Test Date: 2017-10-18 Test Time: 11:45:45 Pat Name: GLENN EASON Department: Room: [address] Gender: F [employer]: . : 1935 Requested By: Elder Dubon Order Number: [id number] Reading MD: Ramón Riley Measurements Intervals [place] Rate: 118 P: DE: QRS: 114 QRSD: 122 T: 19 QT: 374 QTc: 525 Interpretive Statements Atrial fibrillation RBBB and LPFB Repol abnrm suggests ischemia, diffuse leads Compared to ECG 10/14/2017 21:15:41 Left posterior fascicular block now present Early repolarization now present Possible ischemia now present Sinus tachycardia no longer present Right superior axis no longer present Electronically Signed On 10-19-2017 13:00:08 CDT by Ramón Riley [email or web address] <ELECTRONICALLY SIGNED> By: Ramón Riley MD, FACC 10/19/17 1300 1145 1145 Ramón Riley MD, FAC /EPI
[2017-10-20] VITALS (18 sets, daily range): BP systolic 101–154; BP diastolic 32–92
[2017-10-20 03:33] LABS: HEMATOCRIT 25.5 % (37.0-47.0); HEMOGLOBIN 8.3 gm/dL (12.0-15.0); MCH 28.1 pg (26.0-34.0); MCHC 32.7 g/dL (28.0-37.0); MCV 85.8 fL (80.0-100.0); MPV 10.7 fl. (7.2-11.1); RBC 2.97 mil/uL (4.20-5.00); RDW-CV 17.6 % (10.5-14.5); WBC 12.2 thou/uL (4.0-11.0)
[2017-10-20 04:19] LABS: CALCIUM 7.2 mg/dL (8.5-10.1); TOTAL BILIRUBIN 2.9 mg/dL (<0.1-1.0); TOTAL PROTEIN 5.3 g/dL (6.4-8.2)
[2017-10-20 04:50] LABS: CREATININE 6.6 mg/dL (0.6-1.3)
[2017-10-20 04:52] LABS: POTASSIUM 6.1 mmol/L (3.5-5.1)
[2017-10-21] VITALS (17 sets, daily range): BP systolic 83–122; BP diastolic 35–54
[2017-10-21 03:58] LABS: HEMATOCRIT 23.9 % (37.0-47.0); HEMOGLOBIN 7.6 gm/dL (12.0-15.0); MCH 27.3 pg (26.0-34.0); MCHC 31.6 g/dL (28.0-37.0); MCV 86.6 fL (80.0-100.0); MPV 11.1 fl. (7.2-11.1); NUCLEATED RBCS 12 /100WBC; PLATELET COUNT* 74 thou/uL (150-400); RBC 2.76 mil/uL (4.20-5.00); RDW-CV 17.4 % (10.5-14.5); WBC 13.9 thou/uL (4.0-11.0)
[2017-10-21 04:13] LABS: PREALBUMIN 10.9 mg/dL (18.0-35.7)
[2017-10-21 04:45] LABS: ALBUMIN 1.8 g/dL (3.4-5.0); CALCIUM 7.3 mg/dL (8.5-10.1); TOTAL BILIRUBIN 3.5 mg/dL (<0.1-1.0); TOTAL PROTEIN 5.3 g/dL (6.4-8.2)
[2017-10-21 04:47] LABS: CREATININE 8.1 mg/dL (0.6-1.3)
[2017-10-21 04:50] LABS: POTASSIUM 7.6 mmol/L (3.5-5.1)
[2017-10-21 05:55] LABS: ABSOLUTE MONOCYTES 0.3 thou/uL (0.0-1.2); ABSOLUTE NEUTROPHILS 12.6 thou/uL (1.6-8.1); ANISOCYTOSIS 1+; OVALOCYTES 1+; PLATELET ESTIMATE DECREASED; POIKILOCYTOSIS 1+; POLYCHROMASIA 1+
--- NOTE | 2017-10-28 17:05 | CON ---
[address] [address] CONSULTATION Name: GLENN EASON Room: [address] IN M.R.#: [id number] Admission: 10/15/17 Attend Phys: Gilma Wolfe MD Discharge: 10/21/17 Date of : 35 Report #: [id number] THIS REPORT FOR: //name// CC: Gilma Jordan DATE OF SERVICE: 10/15/2017 This is an 82-year-old female patient who is unable to provide any history at all. I talked to the nurses looking after this patient and I DICTATION ENDS HERE. <ELECTRONICALLY SIGNED> By: John Franco MD 10/28/17 1705 1931 [id number] Franco MD /nt
--- NOTE | 2017-10-28 17:12 | CON ---
[address] [address] CONSULTATION Name: GLENN EASON Room: [address] IN M.R.#: [id number] Admission: 10/15/17 Attend Phys: Gilma Wolfe MD Discharge: 10/21/17 Date of : 35 Report #: [id number] THIS REPORT FOR: //name// CC: Gilma Jordan DATE OF SERVICE: 10/15/2017 HISTORY OF PRESENT ILLNESS: This is an 82-year-old female patient who was seen by me last night. The patient's note is being dictated today. The patient was seen last night to prognosticate her from hypoxic encephalopathy. I talked to the nurse looking after this patient last night. He indicated that the consult was put in the morning and that time this patient was not responsive, but since then, the patient has become responsive, but she was restless and he had to sedate her again. I reviewed the patient's records and it looks like this patient presented to Emergency Room for cardiac arrest. This patient has a known coronary artery disease and in fact was scheduled for surgery as I understand. Review of system is not clear in this patient. Presently, the patient is deeply comatose, but that may be because of all sedation because they indicated that this patient wakes up, but that is the history from the nurses. The patient apparently had a stroke in 2009. Further history is not available. She has a history of hyperlipidemia, depression, hypertension and what looks like a significant amount of aortic stenosis. She is being followed by multiple consultants at the moment. She has been seen by Cardiology and has a history of hypertension and CVA. She had cataract surgeries in the past. REVIEW OF SYSTEMS: A 14-point review of system could be carried out only from the records and this was her relevant 14-point review of system. PAST MEDICAL HISTORY: Indicate that this patient has a history of coronary artery disease as well as stroke. FAMILY HISTORY: Noncontributory. SOCIAL HISTORY: The patient has a history of smoking. PHYSICAL EXAMINATION: Pretty limited. NEUROLOGIC: She was not responsive to the painful stimuli or verbal stimuli, but she was also sedated. Nurses indicate that she was responsive prior to this. She did not have any reflexes, but pupils appeared to be reactive. That is all the neurology examination which was possible, she was still intubated. She was on a vent. HEART: She has a murmur in the heart. GENERAL: She is a reasonably well-built individual who does not have any dysmorphic features of eyes, ears and face. EXTREMITIES: She did not appear to have edema, cyanosis [place] [address] CONSULTATION Name: GLENN EASON Room: [address] IN M.R.#: [id number] Admission: 10/15/17 Attend Phys: Gilma Wolfe MD Discharge: 10/21/17 Date of : 35 Report #: [id number] VITAL SIGNS: Her blood pressure was about 114/40, pulse has been 77. She is on a vent. IMAGING: She did not have any imaging study of the brain. IMPRESSION: 1. Status post cardiac arrest. 2. As per history from the nurses, she was waking up, because of that, I did not do much workup when I saw her last night. RECOMMENDATIONS: 1. Plan last night was to just wait and see how she does. 2. We will work up if she does not wake up, but we will not work up if she did wake up. 3. Plan was also to try to get hold of the family and try to talk to them. Thank you very much for this referral. <ELECTRONICALLY SIGNED> By: John Franco MD 10/28/17 1712 1246 [id number] Franco MD /nt
--- NOTE | 2017-10-28 17:26 | EEG ---
[address] [address] EEG STUDY REPORT Name: GLENN EASON Room: [address] IN M.R.#: [id number] Admission: 10/15/17 Attend Phys: Gilma Wolfe MD Discharge: 10/21/17 Date of : 35 Report #: [id number] THIS REPORT FOR: //name// CC: Gilma Jordan DATE OF SERVICE: 10/19/2017 This patient is being evaluated for hypoxic encephalopathy. The EEG was done by placing the electrodes by standard 10-20 system of electrode placement. Both referential and sequential montages were used for recording. Background activity in this patient's EEG is about 5 Hz and 30 microvolt. Photic stimulation was unremarkable. EEG continued to be about same. IMPRESSION: This is a severely abnormal EEG, which is disorganized and poorly formed. That finding is consistent with encephalopathy. However, the finding is nonspecific and therefore, clinical correlation is recommended. This EEG was discussed with the daughter and I discussed with her that her EEG still shows brain activity, although it is abnormal. Because of that, it is not possible to predict the prognosis with 100% accuracy and a decision has to be made depending upon her wishes and the fact that she has a multisystem problem. She understood that and she is going to talk to the family to see what their wishes would have been. We will rediscuss the situation with them tomorrow and decide about further management. Thank you very much for this referral. <ELECTRONICALLY SIGNED> By: John Franco MD 10/28/17 1726 1433 [id number] Franco MD /nt
--- NOTE | 2017-10-28 17:26 | EEG ---
[address] [address] EEG STUDY REPORT Name: GLENN EASON Room: [address] IN M.R.#: [id number] Admission: 10/15/17 Attend Phys: Gilma Wolfe MD Discharge: 10/21/17 Date of : 35 Report #: [id number] THIS REPORT FOR: //name// CC: Glima Jordan DATE OF SERVICE: 10/17/2017 This patient is being evaluated for post-cardiac arrest. EEG was done by placing the electrode by standard 10-20 system of electrode placement. Both referential and sequential montages were used for recording. Background activity is about 4-5 Hz and 30 microvolts. Photic stimulation was unremarkable. No active epileptiform activity was noticed. IMPRESSION: This is an abnormal EEG, which is consistent with the diagnosis of encephalopathy. <ELECTRONICALLY SIGNED> By: John Franco MD 10/28/17 1726 0859 [id number] Franco MD /nt
== END 2017-10-21 18:55 | DRG 207 ==
LOC: M.ERS 21:11 → M.ICU 10-15 00:18 → M.TBA-ER 10-15 00:18 → M.ICU 10-15 00:45 → M.TBA-ER 10-15 00:45 → M.ICU 10-18 11:30
PROVIDERS: Emergency Medicine; Family Medicine; Internal Medicine; Internal Medicine Cardiovascular Disease; Internal Medicine Critical Care Medicine; Internal Medicine Nephrology; Internal Medicine Pulmonary Disease; ADMIT Internal Medicine
PROC: 0BH17EZ Insertion of Endotracheal Airway into Trachea, Via Natural or Artificial Opening (ICD-10-PCS; principal; 2017-10-15)
PROC: 5A1955Z Respiratory Ventilation, Greater than 96 Consecutive Hours (ICD-10-PCS; principal; 2017-10-15)
PROC: 02HV33Z Insertion of Infusion Device into Superior Vena Cava, Percutaneous Approach (ICD-10-PCS; principal; 2017-10-15)
PROC: B24BZZ4 Ultrasonography of Heart with Aorta, Transesophageal (ICD-10-PCS; principal; 2017-10-15)
PROC: 0W9B30Z Drainage of Left Pleural Cavity with Drainage Device, Percutaneous Approach (ICD-10-PCS; principal; 2017-10-15)
PROC: 30233N1 Transfusion of Nonautologous Red Blood Cells into Peripheral Vein, Percutaneous Approach (ICD-10-PCS; 2017-10-17)
DX: J96.01 Acute respiratory failure with hypoxia (principal); J69.0 Pneumonitis due to inhalation of food and vomit; N17.0 Acute kidney failure with tubular necrosis; J93.0 Spontaneous tension pneumothorax; K72.00 Acute and subacute hepatic failure without coma; I21.9 Acute myocardial infarction, unspecified; I50.33 Acute on chronic diastolic (congestive) heart failure; R65.11 Systemic inflammatory response syndrome (SIRS) of non-infectious origin with acute organ dysfunction; Z68.41 Body mass index [BMI] 40.0-44.9, adult; E87.4 Mixed disorder of acid-base balance; G93.1 Anoxic brain damage, not elsewhere classified; S22.41XA Multiple fractures of ribs, right side, initial encounter for closed fracture; I46.9 Cardiac arrest, cause unspecified; I49.01 Ventricular fibrillation; X58.XXXA Exposure to other specified factors, initial encounter; G47.33 Obstructive sleep apnea (adult) (pediatric); E66.01 Morbid (severe) obesity due to excess calories; I08.0 Rheumatic disorders of both mitral and aortic valves; E87.5 Hyperkalemia; D64.9 Anemia, unspecified; Z66 Do not resuscitate; D69.6 Thrombocytopenia, unspecified; I48.91 Unspecified atrial fibrillation; I11.0 Hypertensive heart disease with heart failure; J98.2 Interstitial emphysema; E78.5 Hyperlipidemia, unspecified; I25.10 Atherosclerotic heart disease of native coronary artery without angina pectoris; F32.9 Major depressive disorder, single episode, unspecified; M19.90 Unspecified osteoarthritis, unspecified site; Z86.73 Personal history of transient ischemic attack (TIA), and cerebral infarction without residual deficits; Z79.899 Other long term (current) drug therapy; Z88.8 Allergy status to other drugs, medicaments and biological substances; Y93.89 Activity, other specified; Y92.89 Other specified places as the place of occurrence of the external cause; Y99.8 Other external cause status; Z87.442 Personal history of urinary calculi; Z28.21 Immunization not carried out because of patient refusal